=== PATIENT | male | born 1970 | race Caucasian/White ===

== ENCOUNTER → 2020-07-29 15:06 | Outpatient (BNVA) | payer MEDICARE, MEDICAID, SELFPAY | PROVIDERS: Family Provider Family Medicine; PCP Family Medicine; Visit Provider Nurse Practitioner Family | DX: I10 Essential (primary) hypertension (principal); I48.91 Unspecified atrial fibrillation; R10.9 Unspecified abdominal pain | CPT/HCPCS: 36415; 80053; 81000; 85025 ==

== ENCOUNTER 2020-08-27 11:45 | Outpatient (CLI) | payer MEDICARE, MEDICAID, SELFPAY ==
--- NOTE | 2020-08-27 12:04 | XR_ITS ---
WS: [id number] LUMBAR SPINE: 3 VIEWS TECHNIQUE: AP, lateral and L5-S1 spot. HISTORY: M54.5 - Low back pain COMPARISON: None available. Mild LEFT convex curvature the lumbar spine. Mild spondylitic changes throughout. Facet joint arthrit is at L4-5 and L5-S1 is mild. No fracture. No lytic or sclerotic bone lesions. SI joints are symmetric bilaterally. No soft tissue abnormalities. Calcifications in the pelvis are probably phleboliths. XR/XR lumbar spine 2-3V* [id number] IMPRESSION: Mild spondylitic changes in the lumbar spine. No fractures.
== END 2020-08-27 11:46 | disposition home or self-care (01) ==
PROVIDERS: PCP Family Medicine; Visit Provider Family Medicine
DX: M54.5 Low back pain (principal)
CPT/HCPCS: 72100

== ENCOUNTER 2020-08-30 06:00 | Outpatient (RCR) | payer MEDICARE, MEDICAID, SELFPAY | END 2020-09-22 23:59 | disposition home or self-care (01) | LOC: GPT 06:00 | PROVIDERS: PCP Family Medicine; Referring Provider Family Medicine; Visit Provider Family Medicine | DX: M54.5 Low back pain (principal) | CPT/HCPCS: 97032; 97110; 97161; 97530 ==

== ENCOUNTER → 2020-10-25 09:30 | Outpatient (BNVA) | payer MEDICARE, MEDICAID, SELFPAY | PROVIDERS: PCP Family Medicine; Visit Provider Nurse Practitioner Family | DX: M25.512 Pain in left shoulder (principal) | CPT/HCPCS: 73030 ==

== ENCOUNTER 2020-11-11 14:30 | Outpatient (CLI) | payer MEDICARE, MEDICAID, SELFPAY ==
--- NOTE | 2020-11-11 14:58 | MR_ITS ---
WS: [id number] MRI LEFT SHOULDER HISTORY: M25.512 - Pain in left shoulder COMPARISON: Radiographs 10/25/2020. TECHNIQUE: Multiplanar sequences of the shoulder joint are submitted. Moderate to severe AC joint arthritis. Soft tissue and bone hypertrophy. Erosions involving the clavi cora and the adjacent acromion with a moderate amount of fluid in the subacromial subdeltoid bursa. 5 mm osteophyte along the distal undersurface of the acromion encroaching upon the supraspinatus tendon . No os acromion. Biceps tendon is not identified in the bicipital groove. Humeral head is high riding with widening of the glenohumeral joint. Moderate joint effusion with sma ll loose bodies within the effusion. Loss of the normal cartilage over the humeral head with erosions superiorly. Moderate atrophy of the supraspinatus muscle. Large full-thickness tear with fluid filli ng the gap in the distal supraspinatus tendon along with tendinopathy and interstitial extension of t he tear. Additional tear along the articular surface of the supraspinatus superior to the humeral hea d. Significant encroachment by osteophyte from the distal clavicle upon the tendon. There is fluid ex tending along the tendon sheath of the infraspinatus with a small amount of fluid in the infraspinatu s muscle. Moderate insertion site tear of the infraspinatus. Subscapularis tendon appears to be torn. Cannot follow the subscapularis tendon to the humeral head. There is mild atrophy of the subscapular is muscle with a large amount of fluid surrounding the tendon. Intrasubstance degeneration in the labrum. No definite labral tears. MR/MR shoulder LT wo con* [id number] IMPRESSION: 1. Moderate to severe AC joint arthritis with osteophytes encroaching upon the supraspinatus muscle and tendon over the humeral head. 2. Torn retracted biceps tendon. 3. Large full-thickness tear involving the distal supraspinatus tendon with ad ditional articular surface tear and tendinopathy with interstitial extension of the tear. 4. Torn retracted subscapularis tendon. 5. Insertion site tear infraspinatus tendon. 6. High riding humeral head with widening of the glenohumeral joint. 7. Erosions involving the distal clavicle may be due to gout, rheumatoid arthr itis or CPPD. 8. Moderate atrophy of the supraspinatus muscle and mild of the subscapularis muscle.
== END 2020-11-11 14:31 | disposition home or self-care (01) ==
LOC: RADWPI 14:43
PROVIDERS: PCP Nurse Practitioner Family; Visit Provider Nurse Practitioner Family
DX: G89.29 Other chronic pain (principal); M19.012 Primary osteoarthritis, left shoulder; M75.102 Unspecified rotator cuff tear or rupture of left shoulder, not specified as traumatic; G31.9 Degenerative disease of nervous system, unspecified; S46.812A Strain of other muscles, fascia and tendons at shoulder and upper arm level, left arm, initial encounter; X58.XXXA Exposure to other specified factors, initial encounter; M25.712 Osteophyte, left shoulder
CPT/HCPCS: 73221

== ENCOUNTER 2021-01-28 12:32 | Outpatient (CLI) | payer MEDICARE, MEDICAID, SELFPAY ==
--- NOTE | 2021-01-28 13:00 | MR_ITS ---
WS: [id number] MRI LEFT KNEE NONCONTRAST TECHNIQUE: Axial PD, coronal PD fat sat, coronal PD, sagittal PD, and sagittal PD fat-sat images obta ined. CLINICAL INFORMATION: M25.562 - Pain in left knee COMPARISON: None. FINDINGS: Distal quadriceps and patella tendons are intact. Hypertrophic patella. Normal ACL. Normal PCL. Moder ate suprapatellar effusion. Diffuse edema with nondisplaced fracture of the medial tibial plateau. Di ffuse edema involving the medial tibial plateau extending to the cortical surface. Small visualized f racture line. No significant depression. Grade 2 injury medial collateral ligament with fluid and clayton ma superficial and deep to the MCL. MCL appears grossly intact. Normal lateral collateral ligament. Soft tissue edema about the joint line. Normal popliteal fossa. Moderate chondromalacia patella invol ving the lateral patella facet. No subchondral edema. Normal medial and lateral patellar retinaculum. Mild chronic thinning of the lateral meniscus. Complex tear involving the posterior horn lateral men iscus at the meniscal root with blunting of the posterior horn. MR/MR knee LT wo con* [id number] IMPRESSION: 1. Normal ACL and PCL. 2. Diffuse edema with nondisplaced fracture involving the medial tibial platea u. No depression. 3. Grade 2 injury involving the medial collateral ligament. 4. Complex tear involving the posterior horn medial meniscus at the meniscal r oot with blunting. 5. Diffuse soft tissue edema with moderate joint effusion. 6. Moderate chondromalacia patella. Outbridge grading: grade III: partial-thickness cartilage loss with focal ulcer ation
== END 2021-01-28 12:33 | disposition home or self-care (01) ==
LOC: RADWPI 12:38
PROVIDERS: PCP Nurse Practitioner Family; Visit Provider Nurse Practitioner Family
DX: M25.562 Pain in left knee (principal); R60.0 Localized edema; S82.145A Nondisplaced bicondylar fracture of left tibia, initial encounter for closed fracture; S83.412A Sprain of medial collateral ligament of left knee, initial encounter; S83.232A Complex tear of medial meniscus, current injury, left knee, initial encounter; M25.462 Effusion, left knee; M22.42 Chondromalacia patellae, left knee; X58.XXXA Exposure to other specified factors, initial encounter
CPT/HCPCS: 73721

== ENCOUNTER 2021-03-21 15:08 | Outpatient (CLI) | payer MEDICARE, MEDICAID, SELFPAY ==
--- NOTE | 2021-03-21 15:20 | XR_ITS ---
WS: [id number] XR cervical spine 3V* [id number] REASON FOR EXAM: M54.2 - Cervicalgia FINDINGS: Interbody fusion with small plate and screw fixation anteriorly at C4-C5. Corpectomy with interbody device replacing C5-C6. There is straightening of the normal lordosis of the cervical spine. There is normal facet joint alig nment. There is mild anterolisthesis of C2 on C3. The intervertebral disc spaces at C2-C3 and C3-C4 are relatively intact. There is no focal bony abnormality. XR/XR cervical spine 3V* [id number] IMPRESSION: Status post anterior fusion and discectomy and corpectomy as above. No signific ant interval change in the position and alignment of the surgical appliances co mpared to previous examination of 05/04/2016.
== END 2021-03-21 15:09 | disposition home or self-care (01) ==
PROVIDERS: PCP Nurse Practitioner Family; Visit Provider Nurse Practitioner Family
DX: M54.2 Cervicalgia (principal); G89.29 Other chronic pain; Z98.890 Other specified postprocedural states
CPT/HCPCS: 72040

== ENCOUNTER → 2022-05-06 10:05 | Outpatient (BNVA) | payer MEDICARE, MEDICAID, SELFPAY | PROVIDERS: PCP Nurse Practitioner Family; Visit Provider Nurse Practitioner Family | DX: Z20.822 Contact with and (suspected) exposure to COVID-19 (principal) | CPT/HCPCS: 87426 ==

== ENCOUNTER → 2022-06-11 10:24 | Outpatient (BNVA) | payer MEDICARE, MEDICAID, SELFPAY | PROVIDERS: PCP Nurse Practitioner Family; Visit Provider Nurse Practitioner Family | DX: I10 Essential (primary) hypertension (principal) | CPT/HCPCS: 80053; 80061; 84443; 85025 ==

== ENCOUNTER → 2022-08-06 14:05 | Outpatient (BNVA) | payer MEDICARE, MEDICAID, SELFPAY | PROVIDERS: PCP Nurse Practitioner Family; Visit Provider Nurse Practitioner Family | DX: R10.9 Unspecified abdominal pain (principal) | CPT/HCPCS: 81000 ==

== ENCOUNTER → 2022-08-27 09:29 | Outpatient (BNVA) | payer MEDICARE, MEDICAID, SELFPAY | PROVIDERS: PCP Nurse Practitioner Family; Visit Provider Nurse Practitioner Family | DX: R79.89 Other specified abnormal findings of blood chemistry (principal) | CPT/HCPCS: 84403 ==

== ENCOUNTER → 2022-09-28 17:22 | Outpatient (BNVA) | payer MEDICARE, MEDICAID, SELFPAY | PROVIDERS: PCP Nurse Practitioner Family; Visit Provider Nurse Practitioner Family | DX: J02.9 Acute pharyngitis, unspecified (principal); R05.9 Cough, unspecified | CPT/HCPCS: 87071; 87400; 87880 ==

== ENCOUNTER → 2022-11-03 14:07 | Outpatient (BNVA) | payer MEDICARE, MEDICAID, SELFPAY | PROVIDERS: PCP Nurse Practitioner Family; Visit Provider Internal Medicine Cardiovascular Disease | DX: I48.20 Chronic atrial fibrillation, unspecified (principal); I10 Essential (primary) hypertension; R73.9 Hyperglycemia, unspecified; G47.33 Obstructive sleep apnea (adult) (pediatric); J44.9 Chronic obstructive pulmonary disease, unspecified; Z79.01 Long term (current) use of anticoagulants; Z87.891 Personal history of nicotine dependence | CPT/HCPCS: 99214 ==

== ENCOUNTER → 2022-12-21 17:22 | Outpatient (BNVA) | payer MEDICARE, MEDICAID, SELFPAY | PROVIDERS: PCP Nurse Practitioner Family; Visit Provider Nurse Practitioner Family | DX: M10.9 Gout, unspecified (principal) | CPT/HCPCS: 84550 ==

== ENCOUNTER → 2023-01-27 14:53 | Outpatient (BNVA) | payer MEDICARE, MEDICAID, SELFPAY | PROVIDERS: PCP Nurse Practitioner Family; Visit Provider Nurse Practitioner Family | DX: R60.9 Edema, unspecified (principal); R53.83 Other fatigue | CPT/HCPCS: 80053; 85025 ==

== ENCOUNTER → 2023-02-01 09:59 | Outpatient (BNVA) | payer MEDICARE, MEDICAID, SELFPAY | PROVIDERS: PCP Nurse Practitioner Family; Visit Provider Nurse Practitioner Family | DX: R53.83 Other fatigue (principal); R79.89 Other specified abnormal findings of blood chemistry; R60.9 Edema, unspecified | CPT/HCPCS: 80053; 80061; 84403; 84443 ==

== ENCOUNTER → 2023-04-23 09:12 | Outpatient (BNVA) | payer MEDICARE, MEDICAID, SELFPAY | PROVIDERS: PCP Nurse Practitioner Family; Visit Provider Nurse Practitioner Family | DX: E79.0 Hyperuricemia without signs of inflammatory arthritis and tophaceous disease (principal) | CPT/HCPCS: 84550 ==

== ENCOUNTER → 2023-06-02 09:23 | Outpatient (BNVA) | payer MEDICARE, MEDICAID, SELFPAY | PROVIDERS: PCP Nurse Practitioner Family; Visit Provider Nurse Practitioner Family | DX: R05.9 Cough, unspecified (principal); J44.1 Chronic obstructive pulmonary disease with (acute) exacerbation; Z11.52 Encounter for screening for COVID-19 | CPT/HCPCS: 87400; 87426 ==

== ENCOUNTER → 2023-09-07 10:19 | Outpatient (BNVA) | payer MEDICARE, MEDICAID, SELFPAY | PROVIDERS: PCP Nurse Practitioner Family; Visit Provider Nurse Practitioner Family | DX: Z09 Encounter for follow-up examination after completed treatment for conditions other than malignant neoplasm (principal); Z79.899 Other long term (current) drug therapy; M10.9 Gout, unspecified; I50.9 Heart failure, unspecified; I48.20 Chronic atrial fibrillation, unspecified; M1A.05 Idiopathic chronic gout, hip | CPT/HCPCS: 80048; 84550 ==

== ENCOUNTER → 2023-09-29 14:20 | Outpatient (BNVA) | payer MEDICARE, MEDICAID, SELFPAY | PROVIDERS: PCP Nurse Practitioner Family; Visit Provider Nurse Practitioner Family | DX: I10 Essential (primary) hypertension (principal) | CPT/HCPCS: 80053 ==

== ENCOUNTER → 2023-10-27 08:50 | Outpatient (BNVA) | payer MEDICARE, MEDICAID, SELFPAY | PROVIDERS: PCP Nurse Practitioner Family; Visit Provider Nurse Practitioner Family | DX: R79.9 Abnormal finding of blood chemistry, unspecified (principal) | CPT/HCPCS: 80048 ==

== ENCOUNTER → 2023-12-17 10:21 | Outpatient (BNVA) | payer MEDICARE, MEDICAID, SELFPAY | PROVIDERS: PCP Nurse Practitioner Family; Visit Provider Nurse Practitioner Family | DX: M1A.05 Idiopathic chronic gout, hip (principal); Z79.899 Other long term (current) drug therapy; I10 Essential (primary) hypertension; I48.20 Chronic atrial fibrillation, unspecified; I50.9 Heart failure, unspecified | CPT/HCPCS: 80053; 80061; 84550 ==

== ENCOUNTER → 2023-12-22 15:15 | Outpatient (BNVA) | payer MEDICARE, MEDICAID, SELFPAY | PROVIDERS: PCP Nurse Practitioner Family; Visit Provider Nurse Practitioner Family | DX: M16.11 Unilateral primary osteoarthritis, right hip (principal); M25.551 Pain in right hip | CPT/HCPCS: 73502 ==

== ENCOUNTER 2024-02-09 06:00 | Outpatient (RCR) | payer MEDICARE, MEDICAID, SELFPAY | END 2024-02-20 23:59 | disposition home or self-care (01) | LOC: GPT 06:00 | PROVIDERS: Visit Provider Orthopaedic Surgery | DX: M76.01 Gluteal tendinitis, right hip (principal); M25.551 Pain in right hip; R26.2 Difficulty in walking, not elsewhere classified | CPT/HCPCS: 97110; 97112; 97161 ==

== ENCOUNTER → 2024-03-08 11:09 | Outpatient (BNVA) | payer MEDICARE, MEDICAID, SELFPAY | PROVIDERS: PCP Nurse Practitioner Family; Visit Provider Nurse Practitioner Family | DX: M54.9 Dorsalgia, unspecified (principal) | CPT/HCPCS: 81000 ==

== ENCOUNTER → 2025-05-07 12:10 | Outpatient (BNVA) | payer MEDICARE, MEDICAID, SELFPAY | PROVIDERS: PCP Nurse Practitioner Family; Visit Provider Nurse Practitioner Family | DX: R30.0 Dysuria (principal); Z79.899 Other long term (current) drug therapy | CPT/HCPCS: 81000; 87086 ==

== ENCOUNTER → 2025-05-17 10:29 | Outpatient (BNVA) | payer MEDICARE, MEDICAID, SELFPAY | PROVIDERS: PCP Nurse Practitioner Family; Visit Provider Nurse Practitioner Family | DX: N39.0 Urinary tract infection, site not specified (principal); R31.9 Hematuria, unspecified | CPT/HCPCS: 81000 ==

== ENCOUNTER → 2025-05-21 10:03 | Outpatient (BNVA) | payer MEDICARE, MEDICAID, SELFPAY | PROVIDERS: PCP Nurse Practitioner Family; Visit Provider Nurse Practitioner Family | DX: Z79.899 Other long term (current) drug therapy (principal); N39.0 Urinary tract infection, site not specified; R31.9 Hematuria, unspecified; R81 Glycosuria | CPT/HCPCS: 81000; 83036; 87086 ==

== ENCOUNTER 2025-05-28 12:01 | Outpatient (CLI) | payer MEDICARE, MEDICAID, SELFPAY ==
[2025-05-28 12:54] LABS: Hematocrit 39.4 % (37-53); Hemoglobin 13.20 g/dL (11.27-16.99); Mean Corpuscular HGB Conc 33.5 g/dL (30-55); Mean Corpuscular Hemoglobin 31.6 pg (27-33); Mean Corpuscular Volume 94.3 fl (82-101); Nucleated Red Blood Cells % 0 %; Platelet Count 208 10^3/cmm (157-399); Red Blood Count 4.18 10^6/uL (3.85-5.65); White Blood Count 6.24 10^3/uL (3.29-11.43)
[2025-05-28 13:13] LABS: Alanine Aminotransferase 16 U/L (0-41); Albumin Level 4.1 g/dL (3.5-5.2); Alkaline Phosphatase 109 U/L (40-130); Blood Urea Nitrogen 17 mg/dL (6-20); Calcium 8.7 mg/dL (8.5-10.5); Carbon Dioxide 26 mmol/L (22-29); Chloride 98 mmol/L (98-107); Globulin 2.5 g/dL (1.3-4.6); Glucose 97 mg/dL (65-115); Osmolality Calculated 285 mOsm/kg (285-295); Sodium 137 mmol/L (136-145); Total Protein 6.6 g/dL (6.6-8.7)
[2025-05-28 13:16] LABS: Anion Gap 17.9 (5-19); Aspartate Amino Transferase 16 U/L (0-40); Potassium 4.9 mmol/L (3.5-5.1)
== END 2025-05-28 12:02 | disposition home or self-care (01) ==
LOC: LAB 12:03
PROVIDERS: Visit Provider Internal Medicine Infectious Disease
DX: I11.0 Hypertensive heart disease with heart failure (principal); R32 Unspecified urinary incontinence
CPT/HCPCS: 80053; 85025; 86140

== ENCOUNTER 2025-06-04 15:53 | Outpatient (CLI) | payer MEDICARE, MEDICAID, SELFPAY ==
[2025-06-04 16:31] LABS: Hematocrit 41.8 % (37-53); Hemoglobin 14.30 g/dL (11.27-16.99); Mean Corpuscular HGB Conc 34.2 g/dL (30-55); Mean Corpuscular Hemoglobin 32.4 pg (27-33); Mean Corpuscular Volume 94.8 fl (82-101); Nucleated Red Blood Cells % 0 %; Platelet Count 227 10^3/cmm (157-399); Red Blood Count 4.41 10^6/uL (3.85-5.65); White Blood Count 6.29 10^3/uL (3.29-11.43)
[2025-06-04 16:40] LABS: Alanine Aminotransferase 58 U/L (0-41); Albumin Level 4.0 g/dL (3.5-5.2); Alkaline Phosphatase 120 U/L (40-130); Blood Urea Nitrogen 15 mg/dL (6-20); Calcium 9.4 mg/dL (8.5-10.5); Carbon Dioxide 28 mmol/L (22-29); Chloride 98 mmol/L (98-107); Globulin 2.7 g/dL (1.3-4.6); Glucose 76 mg/dL (65-115); Osmolality Calculated 286 mOsm/kg (285-295); Sodium 138 mmol/L (136-145); Total Protein 6.7 g/dL (6.6-8.7)
[2025-06-04 16:48] LABS: Anion Gap 17.0 (5-19); Aspartate Amino Transferase 27 U/L (0-40); Potassium 5.0 mmol/L (3.5-5.1)
== END 2025-06-04 15:54 | disposition home or self-care (01) ==
PROVIDERS: PCP Nurse Practitioner Family; Visit Provider Internal Medicine Infectious Disease
DX: N39.0 Urinary tract infection, site not specified (principal); B96.1 Klebsiella pneumoniae [K. pneumoniae] as the cause of diseases classified elsewhere
CPT/HCPCS: 80053; 85025; 86140

== ENCOUNTER → 2025-06-25 13:50 | Outpatient (BNVA) | payer MEDICARE, MEDICAID, SELFPAY | PROVIDERS: PCP Nurse Practitioner Family; Visit Provider Nurse Practitioner Family | DX: R60.9 Edema, unspecified (principal); Z79.899 Other long term (current) drug therapy | CPT/HCPCS: 80048; 80053 ==

== ENCOUNTER → 2025-07-23 11:00 | Outpatient (BNVA) | payer MEDICARE, MEDICAID, SELFPAY | PROVIDERS: PCP Nurse Practitioner Family; Visit Provider Nurse Practitioner Family | DX: Z79.899 Other long term (current) drug therapy (principal) | CPT/HCPCS: 80053 ==

== ENCOUNTER → 2025-08-03 13:05 | Outpatient (BNVA) | payer MEDICARE, MEDICAID, SELFPAY | PROVIDERS: PCP Nurse Practitioner Family; Visit Provider Nurse Practitioner Family | DX: R63.5 Abnormal weight gain (principal) | CPT/HCPCS: 81000 ==

== ENCOUNTER → 2025-08-20 14:15 | Outpatient (BNVA) | payer MEDICARE, MEDICAID, SELFPAY | PROVIDERS: PCP Nurse Practitioner Family; Visit Provider Nurse Practitioner Family | DX: R73.09 Other abnormal glucose (principal); Z79.899 Other long term (current) drug therapy | CPT/HCPCS: 80053; 82043; 83036 ==